=== PATIENT | male | born 1975 | race Hispanic/Latino ===

== ENCOUNTER 2018-07-03 07:42 | Emergency (ER) | payer OTHER ==
[2018-07-03] MEDS: ONDANSETRON 4 MG ORAL DISINTEGRATING TAB (Q0162 PER 1MG) PO (08:23)
[2018-07-03] MEDS: KETOROLAC 60 MG/2 ML VIAL (J1885) IM (08:24)
[2018-07-03] MEDS: ACETAMINOPHEN 325 MG TAB PO (08:24)
== END 2018-07-03 09:15 | disposition home or self-care (01) ==
LOC: M ED 07:42
DX: G43.909 Migraine, unspecified, not intractable, without status migrainosus (principal); E03.9 Hypothyroidism, unspecified; F33.9 Major depressive disorder, recurrent, unspecified; Z79.899 Other long term (current) drug therapy; Z79.890 Hormone replacement therapy
CPT/HCPCS: Q0162

== ENCOUNTER 2018-07-04 19:57 | Emergency (ER) | payer OTHER ==
[2018-07-04] MEDS: CEPHALEXIN 500 MG CAP PO (20:57)
== END 2018-07-04 21:03 | disposition home or self-care (01) ==
LOC: M ED 19:57
DX: L03.115 Cellulitis of right lower limb (principal); Z79.899 Other long term (current) drug therapy; Z79.890 Hormone replacement therapy
CPT/HCPCS: 99283

== ENCOUNTER → 2018-12-22 | Outpatient (REF) | payer OTHER ==
[~2018-12-22] MED LIST: CETI10TA PO; FLUTISP; IBUP80TA PO; KEFL500C17 PO; LEVO200T4 PO; PRAZ1CAP PO; PSEU60TA; VITA50005 PO; ZOFR4TAB14 PO
[2018-12-22 12:56] LABS: FREE T4 1.06 NG/DL (0.76-1.46); THYROID STIMULATING HORMONE 12.6 uIU/ML (0.358-3.740)
[2018-12-22 12:58] LABS: TOTAL 25(OH) VITAMIN D 10.1 NG/ML (30.0-100.0)
== END ==
LOC: M LABDRAW1 11:42
PROVIDERS: ATTEND Nurse Practitioner Family
DX: E06.3 Autoimmune thyroiditis (principal); E55.9 Vitamin D deficiency, unspecified

== ENCOUNTER 2019-03-20 06:39 | Emergency (ER) | payer OTHER ==
[~2019-03-20] VITALS: Ht 177.8 cm; Wt 97.7 kg
[2019-03-20] MEDS ORDERED: KETOROLAC 30 MG/ML VIAL (J1885) IV ONE (07:30)
[2019-03-20 08:09] LABS: BASO # 0.1 10^3/uL (0.0-0.2); BASO % 1.7 % (0.0-1.0); EOS # 0.1 10^3/uL (0.0-0.50); HEMATOCRIT 42.7 % (42.0-52.0); HEMOGLOBIN 14.5 g/dl (13.5-17.5); LYMPH # 1.2 10^3/uL (1.5-4.5); LYMPH % 25.1 % (24.0-44.0); MEAN CORPUSCULAR HEMOGLOBIN 29.5 pg (27.0-33.0); MEAN CORPUSCULAR VOLUME 86.8 fl (80.0-96.0); MONO # 0.4 10^3/uL (0.0-0.8); MONO % 9.5 % (0.0-5.0); NEUTROPHILS # 2.8 10^3/uL (1.8-7.7); NEUTROPHILS % 60.5 % (36.0-66.0); PLATELET COUNT, AUTOMATED 194 10^3/uL (150-450); RED BLOOD COUNT 4.92 10^6/uL (4.30-6.10); WHITE BLOOD COUNT 4.6 10^3/uL (4.0-10.0)
[2019-03-20 08:35] LABS: ALBUMIN 3.4 GM/DL (3.2-5.2); BILIRUBIN,DIRECT 0.1 MG/DL (0.0-0.2); BILIRUBIN,TOTAL 0.7 MG/DL (0.2-1.0); TOTAL PROTEIN 7.6 GM/DL (6.4-8.2)
[2019-03-20] MEDS ORDERED: ISOVUE-370 76% 100ML VIAL (Q9967) As Ordered ONE (09:12)
[2019-03-20] MEDS ORDERED: PRIL20TA2 PO (09:40)
[2019-03-20 09:46] VITALS: BP 115/77
--- NOTE | 2019-03-20 10:09 | REP ---
CT ABDOMEN AND PELVIS WITH IV CONTRAST: TECHNIQUE: Axial contrast enhanced images from the lung bases to the pubic symphysis using 100 mL Isovue 370 intravenous contrast material with multiplanar reformations. Visualized lung bases demonstrate no infiltrate. There is diffuse fatty infiltration of the liver. The gallbladder is not well distended but there is no definite edema in the right upper quadrant surrounding the gallbladder. There is no evidence of biliary dilatation. Spleen, adrenals, pancreas and kidneys are unremarkable. There is no hydroureteronephrosis. No bladder abnormality is seen. There is no abdominal aortic aneurysm. There is no adenopathy. There is no free air or free fluid. I see no bowel wall thickening. There are multiple diverticula scattered diffusely throughout the colon and I do not see definite evidence for diverticulitis. No pelvic mass is seen. IMPRESSION: Multiple diverticula scattered throughout the colon with no definite evidence for acute diverticulitis. No free air or free fluid. The appendix is normal. Gallbladder is grossly unremarkable. There is diffuse fatty infiltration of the liver. Electronically Signed by Justice Mccarty MD 03/20/2019 07:26 P
[2019-03-20 12:41] LABS: HEPATITIS A ANTIBODY IGM NEGATIVE (NEGATIVE); HEPATITIS B CORE ANTIBODY IGM NEGATIVE (NEGATIVE); HEPATITIS B SURFACE ANTIGEN NEGATIVE (NEGATIVE)
== END 2019-03-20 09:57 | disposition home or self-care (01) ==
LOC: M ED 06:39
DX: K29.70 Gastritis, unspecified, without bleeding (principal); K57.30 Diverticulosis of large intestine without perforation or abscess without bleeding; K76.0 Fatty (change of) liver, not elsewhere classified; K59.00 Constipation, unspecified; E03.9 Hypothyroidism, unspecified; J30.89 Other allergic rhinitis; Z79.899 Other long term (current) drug therapy
CPT/HCPCS: 36415; 74177; 80047; 80076; 83690; 85025; 86705; 86709; 86803; 87340; 96374; 99284; J1885; Q9967

== ENCOUNTER → 2020-01-06 | Outpatient (REF) | payer OTHER ==
[~2020-01-06] MED LIST changes: +PRIL20TA2 PO
[2020-01-06 16:36] LABS: FREE T4 1.51 NG/DL (0.76-1.46); THYROID STIMULATING HORMONE 9.19 uIU/ML (0.358-3.740)
== END ==
LOC: M LABDRAW1 15:33
PROVIDERS: ATTEND Nurse Practitioner Family
DX: E06.3 Autoimmune thyroiditis (principal)

== ENCOUNTER 2020-08-27 04:32 | Emergency (ER) | payer OTHER ==
[~2020-08-27] VITALS: Ht 175.3 cm; Wt 105.0 kg
[2020-08-27] MEDS ORDERED: CETI-24 PO (04:45)
[2020-08-27] MEDS ORDERED: MELO7.5T35 PO (04:45)
[2020-08-27 05:22] LABS: BASO # 0.1 10^3/uL (0.0-0.2); BASO % 1.5 % (0.0-1.0); EOS # 0.2 10^3/uL (0.0-0.5); EOS % 5.3 % (0.0-3.0); HEMOGLOBIN 15.2 g/dl (13.5-17.5); LYMPH # 1.5 10^3/uL (1.5-5.0); LYMPH % 36.5 % (24.0-44.0); MEAN CORPUSCULAR HEMOGLOBIN 29.1 pg (27.0-33.0); MEAN CORPUSCULAR VOLUME 88.1 fl (80.0-96.0); MONO # 0.4 10^3/uL (0.0-0.8); MONO % 10.3 % (0.0-5.0); NEUTROPHILS # 1.9 10^3/uL (1.5-8.5); NEUTROPHILS % 46.1 % (36.0-66.0); PLATELET COUNT, AUTOMATED 161 10^3/uL (150-450); RED BLOOD COUNT 5.22 10^6/uL (4.30-6.10)
[2020-08-27] MEDS ORDERED: NS 1,000 ML IV ONE (05:30)
[2020-08-27] MEDS ORDERED: KETOROLAC 30 MG/ML 1ML VIAL IV ONE (05:45)
[2020-08-27 06:03] LABS: ALBUMIN 3.2 GM/DL (3.2-5.2); ALT/SGPT 150 U/L (12-78); BILIRUBIN,DIRECT < 0.1 MG/DL (0.0-0.2); BILIRUBIN,TOTAL 0.3 MG/DL (0.2-1.0); LIPASE 282 U/L (73-393); TOTAL PROTEIN 7.1 GM/DL (6.4-8.2)
[2020-08-27] MEDS ORDERED: LIDOCAINE 2% 5ML JELLY UROJET TOP ONE (07:00)
--- NOTE | 2020-08-27 08:07 | REPVR ---
PROCEDURE INFORMATION: Exam: CT Abdomen And Pelvis Without Contrast Exam date and time: 08/27/2020 7:37 AM Age: 45 years old Clinical indication: Abdominal pain; Flank; Left; Additional info: Left flank pain TECHNIQUE: Imaging protocol: Computed tomography of the abdomen and pelvis without contrast. Radiation optimization: All CT scans at this facility use at least one of these dose optimization techniques: automated exposure control; mA and/or kV adjustment per patient size (includes targeted exams where dose is matched to clinical indication); or iterative reconstruction. COMPARISON: CT ABD/PEL W/IV CONTRAST ONLY 03/20/2019 9:09 AM FINDINGS: Lungs: There is mild bilateral posterior dependent lung atelectases. Liver: The liver is heterogeneous and severely hypoattenuated with some nodular hyperdensities in the gallbladder fossa. Gallbladder and bile ducts: Normal. No calcified stones. No ductal dilation. Pancreas: Normal. No ductal dilation. Spleen: Normal. No splenomegaly. Adrenal glands: Normal. No mass. Kidneys and ureters: Normal. No hydronephrosis. Stomach and bowel: The small bowel loops are under distended limiting their evaluation with suggestion of some wall thickening. Appendix: No evidence of appendicitis. Intraperitoneal space: Unremarkable. No free air. No significant fluid collection. Vasculature: There is minimal aortic mural calcifications. Lymph nodes: There is mild increased mesenteric vascularity with shotty small lymph nodes. Urinary bladder: The urinary bladder is nondistended limiting its evaluation. Reproductive: Unremarkable as visualized. Bones/joints: Unremarkable. No acute fracture. Soft tissues: There is a small bilateral fat containing inguinal hernias. IMPRESSION: 1. Diffuse colonic diverticulosis with no CT findings of acute diverticulitis. 2. CT findings raising the question of mild enteritis. 3. Severe fatty infiltration of the liver with some nodular hyperdensities in the gallbladder fossa likely focal fatty sparing. Correlation with ultrasound or MRI is suggested. 4. Small bilateral fat containing inguinal hernias. Electronically signed by: Bebeto Dick On 08/27/2020 08:07:20 AM
[2020-08-27 08:46] VITALS: BP 141/92
--- NOTE | 2020-08-27 16:57 | ED PDOC ---
Post-Departure Follow-Up ft norm fp faxed formal report of ct abd/p for fu . Shania Heredia MD Aug 27, 2020 16:57
== END 2020-08-27 08:49 | disposition home or self-care (01) ==
LOC: M ED 04:32
DX: S39.012A Strain of muscle, fascia and tendon of lower back, initial encounter (principal); X58.XXXA Exposure to other specified factors, initial encounter; Y92.89 Other specified places as the place of occurrence of the external cause; Y93.89 Activity, other specified; Y99.8 Other external cause status; R10.9 Unspecified abdominal pain; E03.9 Hypothyroidism, unspecified; K21.9 Gastro-esophageal reflux disease without esophagitis; Z79.890 Hormone replacement therapy; Z79.899 Other long term (current) drug therapy; Z86.69 Personal history of other diseases of the nervous system and sense organs
CPT/HCPCS: 74176; 80047; 80076; 81001; 83690; 85025; 93041; 96374; 99285; J1885

== ENCOUNTER 2020-12-27 20:46 | Observation (INO) | payer OTHER ==
[~2020-12-27] VITALS: Ht 180.3 cm; Wt 94.9 kg
[~2020-12-27 20:46] MED LIST changes: +CETI-24 PO; +MELO7.5T35 PO
[2020-12-27 21:30] VITALS: BP 149/86
[2020-12-27 21:37] LABS: BASO # 0.1 10^3/uL (0.0-0.2); BASO % 0.9 % (0.0-1.0); EOS # 0.2 10^3/uL (0.0-0.5); EOS % 2.8 % (0.0-3.0); HEMATOCRIT 46.5 % (42.0-52.0); HEMOGLOBIN 16.2 g/dl (13.5-17.5); LYMPH # 1.3 10^3/uL (1.5-5.0); LYMPH % 24.9 % (24.0-44.0); MEAN CORPUSCULAR HGB CONC 34.8 g/dl (32.0-36.5); MEAN CORPUSCULAR VOLUME 86.1 fl (80.0-96.0); MONO # 0.4 10^3/uL (0.0-0.8); MONO % 8.2 % (2.0-8.0); NEUTROPHILS # 3.4 10^3/uL (1.5-8.5); NEUTROPHILS % 62.8 % (36.0-66.0); PLATELET COUNT, AUTOMATED 168 10^3/uL (150-450); WHITE BLOOD COUNT 5.4 10^3/uL (4.0-10.0)
[2020-12-27 21:46] LABS: INR 0.99; PROTHROMBIN TIME 13.3 SECONDS (12.5-14.3)
--- NOTE | 2020-12-27 21:55 | REPVR ---
PROCEDURE INFORMATION: Exam: CT Head Without Contrast Exam date and time: 12/27/2020 9:47 PM Age: 45 years old Clinical indication: Dizziness; Additional info: CVA - nursing interventions must not delay CT TECHNIQUE: Imaging protocol: Computed tomography of the head without contrast. Radiation optimization: All CT scans at this facility use at least one of these dose optimization techniques: automated exposure control; mA and/or kV adjustment per patient size (includes targeted exams where dose is matched to clinical indication); or iterative reconstruction. Other technique: STROKE PROTOCOL was implemented. COMPARISON: No relevant prior studies available. FINDINGS: Brain: There is no CT evidence for an acute large vessel territorial infarct. No acute intracranial hemorrhage is seen. No mass, mass effect, midline shift, or herniation is noted. The cortical gyration pattern, basal ganglia, thalami, brainstem, and cerebellum are normal in appearance. Cerebral ventricles: Normal. No hydrocephalus. Bones/joints: The skull is intact. No suspicious osteolytic or osteoblastic lesion. Paranasal sinuses: The imaged portions of the sinuses are well-aerated. No air-fluid levels are noted in the sinuses. Mastoid air cells: Clear. Auditory system: The middle ear spaces are clear. Soft tissues: Unremarkable. No soft tissue fluid collection. IMPRESSION: No acute intracranial abnormality. ASSESSMENT: ASPECTS ([facility] Stroke Program Early CT Score) is 10. Electronically signed by: Quentin Carias On 12/27/2020 21:55:37 PM
[2020-12-27] MEDS ORDERED: NS 1,000 ML IV ONE (22:00)
[2020-12-27] MEDS ORDERED: METOCLOPRAMIDE INJ 10MG/2ML VIAL (J2765 PER 1) IV ONE (22:00)
[2020-12-27 22:03] LABS: CK-MB VALUE MASS < 1.0 NG/ML (<3.6); CPK CREATINE PHOSPHOKINASE 354 U/L (39-308); MB/CK RELATIVE INDEX 0.28 (< OR =4); TROPONIN I < 0.02 NG/ML (< 0.10)
[2020-12-27 22:16] LABS: ALBUMIN 3.4 GM/DL (3.2-5.2); ALT/SGPT 121 U/L (12-78); BILIRUBIN,DIRECT 0.1 MG/DL (0.0-0.2); BILIRUBIN,TOTAL 0.6 MG/DL (0.2-1.0); LIPASE 233 U/L (73-393); TOTAL PROTEIN 7.5 GM/DL (6.4-8.2)
--- NOTE | 2020-12-27 22:24 | REPVR ---
PROCEDURE INFORMATION: Exam: XR Chest Exam date and time: 12/27/2020 10:19 PM Age: 45 years old Clinical indication: CVA TECHNIQUE: Imaging protocol: XR of the chest Views: 1 view. COMPARISON: No relevant prior studies available. FINDINGS: Lungs: Unremarkable. No consolidation. No pulmonary edema. Pleural spaces: Unremarkable. No pleural effusion. No pneumothorax. Heart/Mediastinum: Unremarkable. No cardiomegaly. Bones/joints: Unremarkable. IMPRESSION: No acute findings. Electronically signed by: Quentin Carias On 12/27/2020 22:25:11 PM
[2020-12-27] MEDS ORDERED: MONT10TA10 PO (22:51)
[2020-12-27] MEDS ORDERED: SUMA4INJ3 SC (22:51)
[2020-12-27] MEDS ORDERED: TIZA4TAB4 PO (22:51)
[2020-12-27] MEDS ORDERED: VITA50005 PO (22:51)
[2020-12-27] MEDS ORDERED: AJOV225I SC (22:51)
[2020-12-27] MEDS ORDERED: METF500T13 PO (22:51)
[2020-12-27] MEDS ORDERED: SYNT50TA PO (22:51)
[2020-12-27] MEDS ORDERED: PROAAER10 INH (22:51)
[2020-12-27] MEDS ORDERED: OCEA0.654 (22:51)
[2020-12-27] MEDS ORDERED: SUMA100T2 PO (22:51)
[2020-12-27] MEDS ORDERED: LEVO2TA PO (22:51)
[2020-12-27] MEDS ORDERED: FLON1SPR (22:51)
--- NOTE | 2020-12-27 22:57 | REPVR ---
PROCEDURE INFORMATION: Exam: CT Abdomen And Pelvis Without Contrast Exam date and time: 12/27/2020 10:27 PM Age: 45 years old Clinical indication: Abdominal pain; Localized; Left upper quadrant (luq); Additional info: Luq pain TECHNIQUE: Imaging protocol: Computed tomography of the abdomen and pelvis without contrast. Radiation optimization: All CT scans at this facility use at least one of these dose optimization techniques: automated exposure control; mA and/or kV adjustment per patient size (includes targeted exams where dose is matched to clinical indication); or iterative reconstruction. COMPARISON: CT ABD PELVIS W/O CONTRAST 08/27/2020 7:33 AM FINDINGS: Lungs: The imaged portions of the lung bases are clear. The lungs were not fully imaged. Heart: No cardiomegaly or pericardial effusion. Diaphragm: Intact. Liver: The liver measures less than 40 Hounsfield units and the attenuation of the liver measures more than 10 Hounsfield units lower compared to the attenuation of the spleen, which is compatible with fatty liver infiltration. There is focal fatty sparing adjacent to the gallbladder fossa. No liver lesion is identified. No hepatomegaly. Gallbladder and bile ducts: No calcified gallstones are noted. No gallbladder wall thickening, pericholecystic fluid, or pericholecystic inflammatory changes are identified. No dilation of the bile ducts is noted. No calcified stones are seen in the common bile duct. Pancreas: Unremarkable. No dilation of the main pancreatic duct is noted. There is no inflammatory fat stranding around the pancreas to suggest acute pancreatitis. Spleen: Unremarkable. No splenomegaly is noted. Adrenal glands: Normal. No adrenal mass is noted. Kidneys and ureters: The kidneys are unremarkable. No renal lesion is noted. There is nonspecific mild bilateral perinephric stranding that is similar in appearance compared to the prior CT abdomen and pelvis on 08/27/2020. No stones are noted in the kidneys or ureters. There is no hydronephrosis or hydroureter. Stomach and bowel: The stomach and small bowel are unremarkable. There is colonic diverticulosis without evidence for diverticulitis. There is no evidence for a bowel obstruction, colitis, pneumatosis intestinalis, intussusception, volvulus, or perforated viscus. Appendix: Normal. There is no evidence for appendicitis. Intraperitoneal space: Unremarkable. No fluid collection. No free air. Retroperitoneal space: No fluid collection. No mass. Vasculature: The abdominal aorta is normal in caliber. Incidental note is made of a circumaortic left renal vein. Lymph nodes: No enlarged lymph nodes. Urinary bladder: No calculi are noted in the bladder. Incidental note is made of a small amount of intramural fat in the anterior wall of the urinary bladder that is similar in appearance compared to the prior CT abdomen and pelvis on 08/27/2020. Reproductive: The prostate gland and seminal vesicles are unremarkable. Bones/joints: There is no fracture or dislocation. No suspicious osteolytic or osteoblastic lesion. Soft tissues: Unremarkable. No hernia. No soft tissue fluid collection. IMPRESSION: 1. No acute findings in the abdomen or pelvis. 2. No stones in the kidneys, ureters, or urinary bladder. No hydronephrosis or hydroureter. 3. Fatty liver. 4. Colonic diverticulosis without evidence for diverticulitis. Electronically signed by: Quentin Carias On 12/27/2020 22:57:44 PM
[2020-12-27 23:10] LABS: RSV AMPLIFICATION NEGATIVE (NEGATIVE)
[2020-12-27] MEDS ORDERED: ASPIRIN 325 MG TAB PO ONE (23:10)
[2020-12-27] MEDS ORDERED: FLUTICASONE PROP 0.05% NASAL SPRAY 16 GM (FLONASE) PRN (23:20)
[2020-12-27] MEDS ORDERED: MELOXICAM (MOBIC) 7.5 MG TAB PO PRN (23:20)
[2020-12-27] MEDS ORDERED: SUMAtriptan SUCCINATE 25 MG TAB PO PRN (23:20)
[2020-12-27] MEDS ORDERED: SODIUM CHLORIDE NASAL 0.65% SPRAY BTL (OCEAN) PRN (23:20)
[2020-12-27] MEDS ORDERED: ALBUTEROL 90 MCG/ACT 8GM HFA INHALER INH PRN (23:20)
[2020-12-27] MEDS ORDERED: NS 1,000 ML IV SCH (23:30)
--- NOTE | 2020-12-27 23:30 | IPNPDOC ---
Text Note Date of Service The patient was seen on 12/27/20 at 1157pm NOTE is a [age] yr old w DM, Hypothyroidism, obesity, migraines and asthma who presented w c/o dysarthria possibly 2/2 TIA vs ADR to meds. Plan: CVA order set, hold cetirizine, tizanidine and f/u MRI/MRA Rest per H&P VS,Fishbone, I+O VS, Fishbone, I+O Laboratory Tests 12/27/20 21:28 Vital Signs Date Time Temp Pulse Resp B/P (MAP) Pulse Ox O2 Delivery O2 Flow Rate FiO2 12/27/20 23:01 91 18 96 Room Air 12/27/20 21:30 12/27/20 21:30 98.2 PETER MITCHELL MD Dec 27, 2020 23:29
[2020-12-28] MEDS ORDERED: tiZANidine 4 MG TAB PO PRN (00:05)
[2020-12-28] MEDS ORDERED: KETOROLAC 30 MG/ML 1ML VIAL IV ONE (00:05)
[2020-12-28] MEDS ORDERED: ONDANSETRON 4 MG TAB PO PRN (00:05)
--- NOTE | 2020-12-28 00:11 | REPVR ---
PROCEDURE INFORMATION: Exam: MR Head Without Contrast Exam date and time: 12/27/2020 11:57 PM Age: 45 years old Clinical indication: Pain; Headache not specified; Additional info: CVA TECHNIQUE: Imaging protocol: MR of the head without contrast. COMPARISON: CT Head without contrast 12/27/2020 9:40 PM FINDINGS: Brain: There is no acute infarct. No acute intracranial hemorrhage is seen. No mass, mass effect, midline shift, or herniation is noted. The cortical gyration pattern, basal ganglia, thalami, brainstem, and cerebellum are normal in appearance. Cerebral ventricles: Normal. No ventriculomegaly. Bones/joints: Unremarkable. Paranasal sinuses: There is minimal mucosal thickening in the ethmoid sinuses. No air-fluid levels are noted in the sinuses. Mastoid air cells: The mastoid air cells are well-aerated. No mastoid effusion. Orbital cavity: Unremarkable. Soft tissues: Unremarkable. IMPRESSION: No acute infarct or acute intracranial abnormality. Electronically signed by: Quentin Carias On 12/28/2020 00:11:21 AM
--- NOTE | 2020-12-28 00:12 | REPVR ---
PROCEDURE INFORMATION: Exam: MR Angiogram Head Without Contrast, Arteries Exam date and time: 12/27/2020 11:57 PM Age: 45 years old Clinical indication: Pain; Headache; Additional info: CVA TECHNIQUE: Imaging protocol: MR angiogram head without contrast. Exam focused on the arteries. COMPARISON: CT Head without contrast 2020-12-27 21:40 FINDINGS: ANTERIOR CIRCULATION: Right internal carotid artery: Intracranial segment is patent with no significant stenosis. No aneurysm. Right middle cerebral artery: No occlusion or significant stenosis. No aneurysm. Right anterior cerebral artery: Large anterior communicating artery. No occlusion or significant stenosis. No aneurysm. Left internal carotid artery: Intracranial segment is patent with no significant stenosis. No aneurysm. Left middle cerebral artery: No occlusion or significant stenosis. No aneurysm. Left anterior cerebral artery: No occlusion or significant stenosis. No aneurysm. POSTERIOR CIRCULATION: Right vertebral artery: Hypoplastic right vertebral artery. Left vertebral artery: No occlusion or significant stenosis. No aneurysm. Basilar artery: No occlusion or significant stenosis. No aneurysm. Right posterior cerebral artery: No occlusion or significant stenosis. No aneurysm. Left posterior cerebral artery: No occlusion or significant stenosis. No aneurysm. IMPRESSION: No stenosis or occlusion. Electronically signed by: Garrett Ibrahim On 12/28/2020 00:12:41 AM
--- NOTE | 2020-12-28 00:54 | HPEPDOC ---
"General Date of Admission Dec 27, 2020 at 20:47 Date of Service: Dec 27, 2020 Attending Physician: PETER MITCHELL MD Chief Complaint The patient is a 45-year-old male admitted with a reason for visit of Dysarthria. History of Present Illness HPI: This is a 45-year-old male with past medical history of hypothyroidism, PTSD, MDD, recently diagnosed DM. 2, migraines, lower back pain, who presents to [facility] ER with the chief complaint of weakness, blurred vision, headaches, and s lowing of speech. He states that he was seen by his primary care physician 2 days ago and was diagnosed with new onset diabetes and was started on 500 mg by mouth twice a day dose of metformin. He states that he took the metformin accordingly. However, yesterday morning about an hour after taking his morning dose of metformin, he noticed feeling nauseous and went to bed to try and sleep it off. When he woke up and tried to get out of his bed, he states that his lower extremities felt heavy. He also complained of blurred vision, sharp frontal headaches, and slowing of his speech with occasional slurring of speech. States that the headache has been constant and sharp in nature and states that the pain differs from his migraine headaches. He states that he still experiences blurred vision since yesterday morning. Past Medical Hx: Newly diagnosed type 2 diabetes. Hypothyroidism. Migraines. PTSD. Lower back pain. Right ankle pain. Right shoulder injury. Umbilical hernia status post repair Past surgical Hx: Right shoulder repair, umbilical hernia repair, right ankle surgery Social history: Never smoker. Denies any alcohol use or illicit drug use. Duty in the [employer] PHYSICAL EXAM: General: fatigued sounding male, laying in bed comfortably NAD HEENT: PERRLA, atraumatic,pharynx and tonsils normal, clear TM's. NECK: no JVD, lymphadenopathy, or thyromegaly, non-tender. LUNGS: no wheezes, rhonchi, rales. HEART: regular rate and rhythm, no murmurs, gallops or rubs ABDOMEN: normal BS, no masses, soft and not tender, no guarding EXTREMITIES: no clubbing, no edema. SKIN: normal, no rash, clubbing or cyanosis Neuro: strength 4/5 throughout, no focal neurological deficits. CN2-12 intact PSYCH: slowed speech, flat affect (vs fatigue at time of interview) ASSESSMENT AND PLAN: #Dysarthria - ECHO with bubble ordered- pending - Given loading dose ASA in ER; will start on ASA 81 mg po daily - will start on atorvastatin 80mg PO - cardiac risk profile ordered - will order for an UDS - Imaging workup with stroke ordered- MRI brain (wnl), MRA (pending result), CT head (wnl) - Speech swallow eval - neruochecks q2h - NPO - zofran for nausea- will monitor for QTc prolongation - PT/OT - admit to floor with tele with cardiac montioring for arrthythimias #DM2 - Per pt, was started on metformin 2 days ago per PCP - Metformin held -will order an A1c - will try to keep blood sugars WNL with SSI - Will start SSI with fingerstick ACQHS |hypoglycemic protocol #hypothyroidism - c/w home med synthroid #migraines -c/w imitrex #Lower back pain - c/w home meloxicam zanaflex - tylenol PRN for pain #seasonal allergies - c/w home med zyrtec -c.w home flonase and ocean nasal spray DVT ppx: lovenox code status: full Home Medications Scheduled Cetirizine HCl (Cetirizine HCl) 10 Mg Tablet, 10 MG PO DAILY, (Reported) Ergocalciferol (Vitamin D2) (Vitamin D2) 50,000 Units Cap, 50,000 UNITS PO QWEEK, (Reported) Saturday Fremanezumab-Vfrm (Ajovy) 225 Mg/1.5 Ml Syringe, 225 MG SC Q3M, (Reported) PATIENT STATES LAST DOSE WAS LAST WEEK Levothyroxine Sodium (Synthroid) 200 Mcg Tablet, 200 MCG PO DAILY, (Reported) TAKES WITH 50MCG FOR 250MCG TOTAL Levothyroxine Sodium (Synthroid) 50 Mcg Tablet, 50 MCG PO DAILY, (Reported) TAKES WITH 200MCG FOR 250MCG TOTAL Metformin HCl (Metformin HCl) 500 Mg Tablet, 500 MG PO BID, (Reported) Montelukast Sodium (Montelukast Sodium) 10 Mg Tablet, 10 MG PO DAILY, (Reported) Scheduled PRN Albuterol Sulfate (Proair Hfa) 8.5 Gm Hfa.aer.ad, 2 PUFF INH QID PRN for SHORTNESS OF BREATH, (Reported) Fluticasone Propionate (Flonase Allergy Relief) 9.9 Ml Mar Lin.susp, 2 SPRAYS NA DAILY PRN for NASAL CONGESTION, (Reported) Meloxicam (Meloxicam) 7.5 Mg Tablet, 7.5 MG PO DAILY PRN for PAIN, (Reported) Sodium Chloride (Kendall) 104 Ml Mar Lin, 2 SPRAY NA QID PRN for NASAL DRYNESS, (Reported) EACH NOSTRIL Sumatriptan Succinate (Sumatriptan Succinate) 100 Mg Tablet, 100 MG PO BID PRN for MIGRAINE, (Reported) Sumatriptan Succinate (Sumatriptan Succinate) 4 Mg/0.5 Ml Pen.injctr, 4 MG SC ASDIRECTED PRN for MIGRAINE, (Reported) Tizanidine HCl (Tizanidine HCl) 4 Mg Tablet, 4 MG PO TID PRN for MUSCLE SPASMS, (Reported) Allergies Coded Allergies: No Known Allergies (Unverified , 12/27/20) A-FIB/CHADSVASC A-FIB History Current/History of A-Fib/PAF?: No Current PO Anticoag Therapy: No Vital Signs Vital Signs Date Time Temp Pulse Resp B/P (MAP) Pulse Ox O2 Delivery O2 Flow Rate FiO2 12/27/20 23:01 91 18 96 Room Air 12/27/20 21:30 12/27/20 21:30 98.2 Laboratory Data Labs 24H Laboratory Tests 2 12/27/20 21:27: Prothrombin Time 13.3, Prothromb Time International Ratio 0.99, Activated Partial Thromboplast Time 36.0 12/27/20 21:28: Immature Granulocyte % (Auto) 0.4, Neutrophils (%) (Auto) 62.8, Lymphocytes (%) (Auto) 24.9, Monocytes (%) (Auto) 8.2H, Eosinophils (%) (Auto) 2.8, Basophils (% ) (Auto) 0.9, Neutrophils # (Auto) 3.4, Lymphocytes # (Auto) 1.3L, Monocytes # (Auto) 0.4, Eosinophils # (Auto) 0.2, Basophils # (Auto) 0.1, Nucleated Red Blood Cells % (auto) 0.0, Total Bilirubin 0.6, Direct Bilirubin 0.1, Aspartate Amino Transf (AST/SGOT) 84H, Alanine Aminotransferase (ALT/SGPT) 121H, Alkaline Phosphatase 108, Total Creatine Kinase 354H, Creatine Kinase MB < 1.0, Creatine Kinase MB Relative Index 0.28, Troponin I < 0.02, Total Protein 7.5, Albumin 3.4, Albumin/Globulin Ratio 0.8, Lipase 233 12/27/20 21:29: POC Glucose (Misc Panel) 224H, POC Sodium (Misc Panel) 135L, POC Potassium (Misc Panel) 3.9, POC Chloride (Misc Panel) 103, POC Total CO2 (Misc Panel) 19.0L, POC Blood Urea Nitrogen (Misc Panel 20, POC Ionized Calcium (Misc Panel) 5.1, POC Creatinine (Misc Panel) 0.8, POC Hematocrit (Misc Panel) 44.0 12/27/20 22:21: Coronavirus (COVID-19)(PCR) NEGATIVE, Influenza Type A (RT-PCR) NEGATIVE, Influenza Type B (RT-PCR) NEGATIVE, Respiratory Syncytial Virus (PCR) NEGATIVE CBC/BMP Laboratory Tests 12/27/20 21:28 Plan / VTE VTE Prophylaxis Ordered?: Yes GME ATTESTATION GME ATTESTATION My faculty preceptor for this patient encounter was physically present during the encounter and was fully available. All aspects of the patient interview, examination, medical decision making process, and medical care plan development were reviewed and approved by the faculty preceptor. The faculty preceptor is aware and concurs with the plan as stated in the body of this note and will attest to such by his/her cosignature. GME ATTESTATION GME ATTESTATION My faculty preceptor for this patient encounter was physically present during the encounter and was fully available. All aspects of the patient interview, examination, medical decision making process, and medical care plan development were reviewed and approved by the faculty preceptor. The faculty preceptor is aware and concurs with the plan as stated in the body of this note and will attest to such by his/her cosignature. ATTENDING NOTE The patient was seen on 12/27/20 at 1157pm is a [age] yr old w DM, Hypothyroidism, obesity, migraines and asthma who presented w c/o dysarthria possibly 2/2 TIA vs ADR to meds. Plan: CVA order set, hold cetirizine, tizanidine and f/u MRI/MRA / elevated LFTs likely 2/2 fatty liver he can f/u with his PCP for a liver US / IVF & CPK slightly elevated f/u repeat in AM Rest per H&P Ruddy Powell DO Dec 28, 2020 00:54 PETER MITCHELL MD Dec 28, 2020 05:44"
[2020-12-28 01:50] VITALS: BP 127/72
[2020-12-28] MEDS ORDERED: GLUCAGON INJ 1MG VIAL SC PRN (02:15)
[2020-12-28] MEDS ORDERED: GLUCOSE 4GM CHEW TABLET PO PRN (02:15)
[2020-12-28] MEDS ORDERED: DEXTROSE 50% 50 ML SYRINGE IV PRN (02:15)
[2020-12-28 02:44] LABS: HEMOGLOBIN A1c 11.5 %
[2020-12-28 05:03] LABS: HEMATOCRIT 42.4 % (42.0-52.0); HEMOGLOBIN 14.5 g/dl (13.5-17.5); MEAN CORPUSCULAR HEMOGLOBIN 29.7 pg (27.0-33.0); MEAN CORPUSCULAR HGB CONC 34.2 g/dl (32.0-36.5); MEAN CORPUSCULAR VOLUME 86.7 fl (80.0-96.0); PLATELET COUNT, AUTOMATED 136 10^3/uL (150-450); RED BLOOD COUNT 4.89 10^6/uL (4.30-6.10); WHITE BLOOD COUNT 4.5 10^3/uL (4.0-10.0)
[2020-12-28 05:26] LABS: BLOOD UREA NITROGEN 18 MG/DL (7-18); CALCIUM LEVEL 8.3 MG/DL (8.5-10.1); CARBON DIOXIDE LEVEL 18 MEQ/L (21-32); CHLORIDE LEVEL 105 MEQ/L (98-107); CHOLESTEROL LEVEL 256 MG/DL (<200); CHOLESTEROL RISK RATIO 9.846 (<5); CREATININE FOR GFR 0.96 MG/DL (0.70-1.30); GLOMERULAR FILTRATION RATE > 60.0 (>60); GLUCOSE, FASTING 254 MG/DL (70-100); HDL CHOLESTEROL 26 MG/DL (>40); NON-HDL-C 230 MG/DL; SODIUM LEVEL 136 MEQ/L (136-145); TRIGLYCERIDES LEVEL 533 MG/DL (<150)
[2020-12-28] MEDS ORDERED: LEVOTHYROXINE 50MCG TABLET (0.05MG) PO SCH (06:00)
[2020-12-28] MEDS ORDERED: LEVOTHYROXINE 100MCG TABLET (0.1MG) PO SCH (06:00)
[2020-12-28] MEDS: ACETAMINOPHEN 650MG ER TAB (TYLENOL ARTHRITIS) PO SCH ×2 (06:04→13:27)
[2020-12-28 07:03] VITALS: BP 114/70
--- NOTE | 2020-12-28 08:03 | ECGEPIP ---
[facility] - ED Test Date: 2020-12-27 Pat Name: BIA BHAGAT Department: Room: [place] [address] Gender: Male Franchise Manager: lizzette : 1975 Requested By: MARY Carrasco Order Number: [id number] Reading MD: Luis Carlos Lou Measurements Intervals Herman Rate: 97 P: 35 TX: 146 QRS: -17 QRSD: 106 T: 11 QT: 348 QTc: 441 Interpretive Statements Normal sinus rhythm Moderate voltage criteria for LVH, may be normal variant MODERATE INTRAVENTRICULAR CONDUCTION DELAY POOR R WAVE PROGRESSION NONSPECIFIC T WAVE ABNORMALITY(S) NO PRIORS FOR COMPARISON Electronically Signed on 12-28-2020 8:02:48 EDT by Luis Carlos Lou
[2020-12-28] MEDS: HumaLOG INSULIN (NovoLOG) PER UNIT SC SCH ×3 (08:41→17:41)
[2020-12-28] MEDS ORDERED: ASPIRIN 325 MG TAB PO SCH (09:00)
[2020-12-28] MEDS ORDERED: ASPIRIN 81 MG CHEW TABLET PO SCH (09:00)
[2020-12-28] MEDS ORDERED: ENOXAPARIN 40MG/0.4ML SYRINGE (J1650 PER 10MG) SC SCH (09:00)
[2020-12-28] MEDS ORDERED: MONTELUKAST 10 MG TAB PO SCH (09:00)
[2020-12-28] MEDS ORDERED: ATORVASTATIN 20 MG TAB PO SCH (09:00)
[2020-12-28] MEDS ORDERED: CETIRIZINE (ZyrTEC) 10 MG TAB PO SCH (09:00)
[2020-12-28] MEDS ORDERED: MAALOX 30 ML SUSP *UDC PO PRN (10:15)
[2020-12-28 11:12] VITALS: BP 117/69
[2020-12-28] MEDS ORDERED: ISOVUE-370 76% 100ML VIAL As Ordered ONE (11:53)
[2020-12-28 15:19] VITALS: BP 120/69
--- NOTE | 2020-12-28 15:31 | REPVR ---
PROCEDURE INFORMATION: Exam: CT Angiography Neck With Contrast Exam date and time: 12/28/2020 12:00 PM Age: 45 years old Clinical indication: Speech disturbance; Dysarthria and anarthria TECHNIQUE: Imaging protocol: Computed tomography angiography of the neck with intravenous contrast. 3D rendering (Not supervised by radiologist): MIP and/or 3D reconstructed images were created by the technologist. Radiation optimization: All CT scans at this facility use at least one of these dose optimization techniques: automated exposure control; mA and/or kV adjustment per patient size (includes targeted exams where dose is matched to clinical indication); or iterative reconstruction. Contrast material: ISOVUE 370; Contrast volume: 100 ml; Contrast route: INTRAVENOUS (IV); COMPARISON: No relevant prior studies available. FINDINGS: Right common carotid artery: No stenosis. No dissection or occlusion. Right internal carotid artery: No stenosis of the extracranial segment. No dissection or occlusion. Right external carotid artery: No occlusion or stenosis of the origin. Right vertebral artery: No stenosis. No dissection or occlusion. Left common carotid artery: No stenosis. No dissection or occlusion. Left internal carotid artery: No stenosis of the extracranial segment. No dissection or occlusion. Left external carotid artery: No occlusion or stenosis of the origin. Left vertebral artery: No stenosis. No dissection or occlusion. Bones/joints: No acute fracture. Soft tissues: Normal. No significant soft tissue swelling. IMPRESSION: No stenosis or occlusion. REFERENCES: NASCET CRITERIA. The degree of internal carotid artery stenosis is based on NASCET criteria. Normal is no stenosis. Mild is less than 50% stenosis. Moderate is 50-69% stenosis. Severe is 70% to 99% stenosis. Total occlusion is no detectable patent lumen. Electronically signed by: Bronwyn Sandoval On 12/28/2020 15:30:57 PM
--- NOTE | 2020-12-28 15:37 | REPVR ---
PROCEDURE INFORMATION: Exam: US Abdomen, Limited; Right Upper Quadrant Exam date and time: 12/28/2020 5:52 AM Age: 45 years old Clinical indication: Abnormal findings; Abnormal lab test; Elevated liver enzymes; Additional info: Transaminitis in PT w obesity and dm suspect fatty liver TECHNIQUE: Imaging protocol: US abdomen. Real time ultrasound with image documentation. Limited exam focused on the right upper quadrant. COMPARISON: CT ABD PELVIS W/O CONTRAST 12/27/2020 10:13 PM FINDINGS: Liver: There is heterogeneously increased echogenicity of the liver parenchyma consistent with fatty infiltration. No focal hepatic lesions. Right lobe measures at least 18 cm but is only partially included on 1 [id number] consistent with hepatomegaly. Gallbladder: There is no gallbladder wall thickening. No calculi. No sonographic Nava sign. Common bile duct: Common bile duct is not dilated measuring 3.6 mm in width. Pancreas: Pancreas is obscured by overlying bowel gas. Right kidney: Right kidney is normal appearance measuring 13.6 cm in length. There is no renal cortical thinning or hydronephrosis. IMPRESSION: 1. Hepatomegaly likely due to fatty infiltration. 2. No evidence of cholelithiasis and/or cholecystitis. Electronically signed by: Bronwyn Sandoval On 12/28/2020 15:37:26 PM
[2020-12-28] MEDS ORDERED: ASPI81CH8 PO (16:00)
[2020-12-28] MEDS ORDERED: ATOR1TAB21 PO (16:00)
--- NOTE | 2020-12-28 16:53 | DS.PDOC ---
Discharge Summary General Date of Admission Dec 27, 2020 at 20:47 Date of Discharge Dec 28, 2020. Attending Physician: GOLDIE GUZMAN MD Discharge Summary PROCEDURES PERFORMED DURING STAY: None. ADMITTING DIAGNOSES: 1. Dysarthria. 2. DM2. 3. Hypothyroidism. 4. Migraines. 5. Lower back pain. 6. Seasonal allergies. DISCHARGE DIAGNOSES: 1. Blurry vision 2/2 atypical migraine. 2. Migraine headaches. 3. Type 2 diabetes mellitus. 4. GERD. COMPLICATIONS/CHIEF COMPLAINT: Dysarthria. HISTORY OF PRESENT ILLNESS: This is a 45-year-old male with past medical history of hypothyroidism, PTSD, MDD, recently diagnosed DM. 2, migraines, lower back pain, who presents to [facility] ER with the chief complaint of weakness, blurred vision, headaches, and slowing of speech. He states that he was seen by his primary care physician 2 days ago and was diagnosed with new onset diabetes and was started on 500 mg by mouth twice a day dose of metformin. He states that he took the metformin accordingly. However, yesterday morning about an hour after taking his morning dose of metformin, he noticed feeling nauseous and went to bed to try and sleep it off. When he woke up and tried to get out of his bed, he states that his lower extremities felt heavy. He also complained of blurred vision, sharp frontal headaches, and slowing of his speech with occasional slurring of speech. States that the headache has been constant and sharp in nature and states that the pain differs from his migraine headaches. He states that he still experiences blurred vision since yesterday morning. . HOSPITAL COURSE: Pt had no acute events overnight. Pt states that he has been having blurry vision and dizziness/lightheadedness for the past several days prior to the onset of his slowed speech and bilateral lower extremity heaviness. He states that he feels like his speech is slower and it is more difficult for him to find his words. He reports that his has noticed the same however, this is difficult to assess during physical exam as we are unsure of what pt baseline is. He states that he still has the blurry vision, dizziness, lightheadedness, and headache behind his eyes. States that he feels a room spinning dizziness when he gets up from sitting to standing but feels lightheaded when he is sitting. Pt also complains of some epigastric pain and reflux so he was given mylanta. Discussed with Dr. Lopez, neurologist, about pt and he states that pt has been seen in the office with complaints of blurry vision in the past. Given the fact that pt sx are bilateral and imaging done was negative for any ischemic or hemorrhagic process, it is unlikely that pt had a TIA/stroke. Pt is likely having an atypical migraine. Prior to discharge, pt reports that his headache has resolved and his blurry vision has gotten better. Will have pt follow up with neurology, ophthalmology, and PCP as outpatient. DISCHARGE MEDICATIONS: Please see below. ALLERGIES: Please see below. PHYSICAL EXAMINATION ON DISCHARGE: VITAL SIGNS: Please see below. GENERAL: Pt is laying down in bed. No apparent distress. HEENT: EOMI. No nystagmus. PERRLA. Conjunctiva normal. No scleral icterus. No conjunctival injection. Lids normal. Tongue midline. CARDIOVASCULAR EXAMINATION: Regular rate and rhythm. No murmurs, rubs, or gallops appreciated. RESPIRATORY EXAMINATION: Clear to auscultation with good air movement. No wheezes, rales, or rhonchi appreciated. ABDOMINAL EXAMINATION: Mild RUQ, epigastric, and LUQ abd tenderness to palpation. Normoactive bowel sounds in all four quadrants. EXTREMITIES: No pitting edema appreciated. 2+ DP pules. 5/5 strength in all four extremities. NEUROLOGICAL EXAMINATION: CN III-XII grossly intact. During examination of EOM, pt had increase in dizziness. Finger to nose and heel to toe were normal. LABORATORY DATA: Please see below. IMAGING: CT Head (12/27/20): IMPRESSION- No acute intracranial abnormality. CXR (12/27/20): IMPRESSION- No acute findings. CT Abd/Pelvis (12/27/20): IMPRESSION- No acute findings in the abd or pelvis. No stones in the kidneys, ureters, or urinary bladder. No hydronephrosis or hydroureter. Fatty liver. Colonic diverticulosis without evidence of diverticulitis. MRI Brain (12/27/20): IMPRESSION- No acute infarct or acute intracranial abnormality. MRA Head (12/27/20): IMPRESSION- No stenosis or occlusion. Liver US (12/28/20): IMPRESSION- Hepatomegaly likely due to fatty infiltration. No evidence of cholelithiasis or cholecystitis. CTA Neck (12/28/20): IMPRESSION- No stenosis or occlusion. PROGNOSIS: Fair. ACTIVITY: As tolerated. DIET: Consistent carb diet. DISCHARGE PLAN: Discharge home. DISCHARGE INSTRUCTIONS: 1. Follow up with PCP in 7-10 days. 2. Follow up with neurology in 7-10 days. 3. Follow up with ophthalmology in 7-10 days. 4. Return to ER if sx worsen or return. ITEMS TO FOLLOWUP ON ON OUTPATIENT: 1. Follow up with PCP in 7-10 days. 2. Follow up with neurology in 7-10 days. 3. Follow up with ophthalmology in 7-10 days. DISCHARGE CONDITION: Stable. TIME SPENT ON DISCHARGE: Greater than 35 minutes. Vital Signs/I&Os Vital Signs Date Time Temp Pulse Resp B/P (MAP) Pulse Ox O2 Delivery O2 Flow Rate FiO2 12/28/20 15:19 98.0 81 18 120/69 (86) 94 Room Air I&O- Last 24 Hours up to 6 AM 12/28/20 06:00 Intake Total 1250 ml Output Total 0 ml Balance 1250 ml Laboratory Data Labs 24H Laboratory Tests 2 12/27/20 21:09: Bedside Glucose (Misc Panel) 220H 12/27/20 21:27: Prothrombin Time 13.3, Prothromb Time International Ratio 0.99, Activated Partial Thromboplast Time 36.0 12/27/20 21:28: Immature Granulocyte % (Auto) 0.4, Neutrophils (%) (Auto) 62.8, Lymphocytes (%) (Auto) 24.9, Monocytes (%) (Auto) 8.2H, Eosinophils (%) (Auto) 2.8, Basophils (% ) (Auto) 0.9, Neutrophils # (Auto) 3.4, Lymphocytes # (Auto) 1.3L, Monocytes # (Auto) 0.4, Eosinophils # (Auto) 0.2, Basophils # (Auto) 0.1, Nucleated Red Blood Cells % (auto) 0.0, Total Bilirubin 0.6, Direct Bilirubin 0.1, Aspartate Amino Transf (AST/SGOT) 84H, Alanine Aminotransferase (ALT/SGPT) 121H, Alkaline Phosphatase 108, Total Creatine Kinase 354H, Creatine Kinase MB < 1.0, Creatine Kinase MB Relative Index 0.28, Troponin I < 0.02, Total Protein 7.5, Albumin 3.4, Albumin/Globulin Ratio 0.8, Lipase 233 12/27/20 21:29: POC Glucose (Misc Panel) 224H, POC Sodium (Misc Panel) 135L, POC Potassium (Misc Panel) 3.9, POC Chloride (Misc Panel) 103, POC Total CO2 (Misc Panel) 19.0L, POC Blood Urea Nitrogen (Misc Panel 20, POC Ionized Calcium (Misc Panel) 5.1, POC Creatinine (Misc Panel) 0.8, POC Hematocrit (Misc Panel) 44.0 12/27/20 22:21: Coronavirus (COVID-19)(PCR) NEGATIVE, Influenza Type A (RT-PCR) NEGATIVE, Influenza Type B (RT-PCR) NEGATIVE, Respiratory Syncytial Virus (PCR) NEGATIVE 12/28/20 02:03: Estimated Mean Plasma Glucose 283H, Hemoglobin A1c 11.5 12/28/20 02:07: Bedside Glucose (Misc Panel) 290H 12/28/20 04:19: Nucleated Red Blood Cells % (auto) 0.0, Anion Gap 13, Glomerular Filtration Rate > 60.0, Calcium Level 8.3L, Total Creatine Kinase 264, Triglycerides Level 533H, Total Cholesterol 256H, LDL Cholesterol , Non-HDL Cholesterol (LDL + VLDL) 230, Total HDL Cholesterol 26L, Cholesterol/HDL Ratio 9.846H, Thyroid Stimulating Hormone (TSH) 1.090 12/28/20 11:24: Bedside Glucose (Misc Panel) 253H CBC/BMP Laboratory Tests 12/27/20 21:28 12/28/20 04:19 FSBS Laboratory Tests Test 12/27/20 21:09 12/28/20 02:07 12/28/20 11:24 Range/Units Bedside Glucose (Misc Panel) 220 290 253 70-105 MG/DL Discharge Medications Scheduled Aspirin (Children's Aspirin) 81 Mg Tab.chew, 81 MG PO DAILY Atorvastatin Calcium (Atorvastatin Calcium) 20 Mg Tablet, 80 MG PO DAILY Cetirizine HCl (Cetirizine HCl) 10 Mg Tablet, 10 MG PO DAILY, (Reported) Ergocalciferol (Vitamin D2) (Vitamin D2) 50,000 Units Cap, 50,000 UNITS PO QWEEK, (Reported) Saturday Fremanezumab-Vfrm (Ajovy) 225 Mg/1.5 Ml Syringe, 225 MG SC Q3M, (Reported) PATIENT STATES LAST DOSE WAS LAST WEEK Levothyroxine Sodium (Synthroid) 200 Mcg Tablet, 200 MCG PO DAILY, (Reported) TAKES WITH 50MCG FOR 250MCG TOTAL Levothyroxine Sodium (Synthroid) 50 Mcg Tablet, 50 MCG PO DAILY, (Reported) TAKES WITH 200MCG FOR 250MCG TOTAL Metformin HCl (Metformin HCl) 500 Mg Tablet, 500 MG PO BID, (Reported) Montelukast Sodium (Montelukast Sodium) 10 Mg Tablet, 10 MG PO DAILY, (Reported) Scheduled PRN Albuterol Sulfate (Proair Hfa) 8.5 Gm Hfa.aer.ad, 2 PUFF INH QID PRN for SHORTNESS OF BREATH, (Reported) Fluticasone Propionate (Flonase Allergy Relief) 9.9 Ml Stephen.susp, 2 SPRAYS NA DAILY PRN for NASAL CONGESTION, (Reported) Meloxicam (Meloxicam) 7.5 Mg Tablet, 7.5 MG PO DAILY PRN for PAIN, (Reported) Sodium Chloride ([place]) 104 Ml Stephen, 2 SPRAY NA QID PRN for NASAL DRYNESS, (Reported) EACH NOSTRIL Sumatriptan Succinate (Sumatriptan Succinate) 100 Mg Tablet, 100 MG PO BID PRN for MIGRAINE, (Reported) Sumatriptan Succinate (Sumatriptan Succinate) 4 Mg/0.5 Ml Pen.injctr, 4 MG SC ASDIRECTED PRN for MIGRAINE, (Reported) Tizanidine HCl (Tizanidine HCl) 4 Mg Tablet, 4 MG PO TID PRN for MUSCLE SPASMS, (Reported) Allergies Coded Allergies: No Known Allergies (Unverified , 12/27/20) GME ATTESTATION GME ATTESTATION My faculty preceptor for this patient encounter was physically present during the encounter and was fully available. All aspects of the patient interview, examination, medical decision making process, and medical care plan development were reviewed and approved by the faculty preceptor. The faculty preceptor is aware and concurs with the plan as stated in the body of this note and will attest to such by his/her cosignature. Malena ELIZONDO S-3 Dec 28, 2020 16:53
[2020-12-28] MEDS ORDERED: HumaLOG INSULIN (NovoLOG) PER UNIT SC SCH (21:00)
--- NOTE | 2020-12-30 11:46 | ECHO ---
DATE OF PROCEDURE: 12/28/2020 Age: 45 Gender: Male REFERRING PHYSICIAN: Xiomara Goldstein MD. PATIENT LOCATION: Room 3212. REASON FOR STUDY: Cerebrovascular accident (CVA). 2D MEASUREMENTS: IVS 1.3 cm LV 4.6 cm LVPW 1.3 cm LA 3.3 cm Aorta 3.4 cm IVC 2.1 cm DOPPLER MEASUREMENT Peak velocity across the aortic valve 1.4 m/s Peak velocity across the LVOT 0.97 m/s Mitral E 0.70 Mitral A 0.66 with a ratio of 1.1 2D COMMENTS: 1. Normal left ventricular size with mildly increased left ventricular wall thickness and a normal global left ventricular systolic function, hyperdynamic. The estimated left ventricular systolic ejection fraction is 65% to 70%. 2. Normal left atrium. Normal right atrium and right ventricle. 3. The atrial septum appeared to be normal without evidence of defect or shunt. 4. Normal aortic root. 5. No pericardial effusion seen. 6. Mildly calcified aortic valve with normal leaflet excursion. Mildly calcified mitral annulus with normal anterior mitral valve leaflet motion. Normal tricuspid valve. The pulmonic valve and proximal pulmonary artery branches were not well visualized. 7. The inferior vena cava was dilated, central venous pressure is probably elevated. Doppler only trace mitral regurgitation detected. Assessment of the left ventricular diastolic function appeared to be normal. IMPRESSION: 1. Normal global left ventricular systolic function with mild concentric left ventricular hypertrophy. Assessment of the left ventricular diastolic function appeared to be normal. 2. Aortic valve sclerosis without stenosis or aortic regurgitation. 3. Mitral annulus calcification with trace mitral regurgitation. MTDD
== END 2020-12-28 18:00 | disposition home or self-care (01) ==
LOC: M ED 20:46 → M ED INP 20:47 → ENRESERV 12-28 00:47 → M PCU 12-28 01:50
PROVIDERS: ADMIT Internal Medicine; ATTEND Internal Medicine
DX: G43.819 Other migraine, intractable, without status migrainosus (principal); E11.9 Type 2 diabetes mellitus without complications; R94.5 Abnormal results of liver function studies; R29.701 NIHSS score 1; R10.13 Epigastric pain; K21.9 Gastro-esophageal reflux disease without esophagitis; E03.9 Hypothyroidism, unspecified; M54.5 Low back pain; F43.10 Post-traumatic stress disorder, unspecified; J45.909 Unspecified asthma, uncomplicated; Z79.899 Other long term (current) drug therapy; Z79.84 Long term (current) use of oral hypoglycemic drugs
CPT/HCPCS: 36415; 70450; 70498; 70544; 70551; 71045; 74176; 76705; 80047; 80048; 80061; 80076; 82550; 82553; 83036; 83690; 84443; 84484; 85025; 85027; 85610; 85730; 87631; 92610; 93005; 93041; 93306; 94760; 96361; 96372; 96374; 96375; 99285; J1650; J1885; J2765; Q9967